=== PATIENT | male | born 1965 | race Caucasian/White ===

== ENCOUNTER 2016-09-16 07:19 | Emergency (ER) | payer SELFPAY ==
[2016-09-16] MEDS ORDERED: OXYCODONE-ACETAMINOPHEN 5-325 MG TABLET PO ONE (08:05)
--- NOTE | 2016-09-16 08:42 | RADIOLOGY REPORT (SQ) ---
EXAM DESCRIPTION: KNEE RIGHT 3 VIEWS COMPLETED DATE/TIME: 09/16/2016 8:31 am REASON FOR STUDY: swelling pain COMPARISON: None. NUMBER OF VIEWS: Three views. TECHNIQUE: AP, lateral, and sunrise patella radiographic images acquired of the right knee. LIMITATIONS: None. FINDINGS: MINERALIZATION: Normal. BONES: No acute fracture or dislocation. No worrisome bone lesions. Benign-appearing sclerotic lesi on in the femoral metaphysis consistent with healed fibrous cortical defect. Small spur off the lino lla at the insertion the quadriceps tendon. JOINT: Probable small joint effusion. SOFT TISSUES: No soft tissue swelling. No radio-opaque foreign body. OTHER: No other significant finding. IMPRESSION: 1. Probable small joint effusion. 2. Small spur off of the patella at the insertion of the quadriceps. TECHNICAL DOCUMENTATION: JOB ID: [id number] [facility]- All Rights Reserved
--- NOTE | 2016-09-16 10:43 | ER Document Report ---
ED General - General Chief Complaint: Knee Injury Stated Complaint: RIGHT LEG PAIN Time Seen by Provider: 09/16/16 07:22 TRAVEL OUTSIDE OF THE [place] IN LAST 30 DAYS: No - HPI Patient complains to provider of: Right knee pain Notes: Patient coming in for evaluation of right knee pain. Patient states a few weeks ago down had a popping feeling in his knee since that time has had intermittent pain difficulty in ambulating now has swelling from mid thigh to the ankle. Denies any recent travel denies history of blood clots. Denies any fevers chills nausea vomiting. - Related Data Allergies/Adverse Reactions: No Known Allergies Allergy (Verified 09/16/16 07:35) Past Medical History - Social History Smoking Status: Unknown if Ever Smoked Family History: Reviewed & Not Pertinent Patient has suicidal ideation: No Patient has homicidal ideation: No - Past Medical History Cardiac Medical History: Reports: Hx Hypercholesterolemia Endocrine Medical History: Reports: Hx Hypothyroidism Renal/ Medical History: Denies: Hx Peritoneal Dialysis Past Surgical History: Reports: Hx Orthopedic Surgery, Hx Thyroid Surgery - Immunizations Hx Diphtheria, Pertussis, Tetanus Vaccination: Yes Review of Systems - Review of Systems Constitutional: No symptoms reported EENT: No symptoms reported Cardiovascular: No symptoms reported Respiratory: No symptoms reported Gastrointestinal: No symptoms reported Genitourinary: No symptoms reported Male Genitourinary: No symptoms reported Musculoskeletal: Muscle pain - knee pain Skin: No symptoms reported Hematologic/Lymphatic: No symptoms reported Neurological/Psychological: No symptoms reported -: Yes All other systems reviewed and negative Physical Exam - Vital signs Vitals: Temp Pulse BP Pulse Ox 98.5 F 66 130/88 H 96 09/16/16 07:30 09/16/16 07:30 09/16/16 07:30 09/16/16 07:30 Interpretation: Normal - General General appearance: Appears well, Alert - HEENT Head: Normocephalic, Atraumatic Eyes: Normal Pupils: PERRL - Respiratory Respiratory status: No respiratory distress Chest status: Nontender Breath sounds: Normal Chest palpation: Normal - Cardiovascular Rhythm: Regular Heart sounds: Normal auscultation Murmur: No - Abdominal Inspection: Normal Distension: No distension Bowel sounds: Normal Tenderness: Nontender Organomegaly: No organomegaly - Back Back: Normal, Nontender - Extremities General upper extremity: Normal inspection, Nontender, Normal color, Normal ROM , Normal temperature General lower extremity: Normal inspection, Tender - Tenderness palpation of the right patella. Patient has no tenderness or joint laxity with valgus varus anterior posterior drawer testing. Patient does have 1+ edema from the need to the ankle., Normal color, Normal ROM, Normal temperature, Normal weight bearing. No: Yomi's sign - Neurological Neuro grossly intact: Yes Cognition: Normal Orientation: AAOx4 [place] Coma Scale Eye Opening: Spontaneous [place] Coma Scale Verbal: Oriented [place] Coma Scale Motor: Obeys Commands Dwain Coma Scale Total: 15 Speech: Normal Motor strength normal: LUE, RUE, LLE, RLE Sensory: Normal - Psychological Associated symptoms: Normal affect, Normal mood - Skin Skin Temperature: Warm Skin Moisture: Dry Skin Color: Normal Course - Re-evaluation Re-evalutation: 09/16/16 14:57 Doppler is negative for any acute disease. X-rays also negative we will place the patient in Arnaud wrap we will also give her crutches encourage patient to follow-up with PCP and orthopedics. - Vital Signs Vital signs: Temp Pulse Resp BP Pulse Ox 97.4 F 82 18 125/94 H 99 09/16/16 11:05 09/16/16 11:05 09/16/16 11:05 09/16/16 11:05 09/16/16 11:05 Discharge - Discharge Clinical Impression: Right knee pain Qualifiers: Chronicity: acute Qualified Code(s): M25.561 - Pain in right knee Condition: Good Disposition: HOME, SELF-CARE Instructions: Use of Crutches ([facility]), Ice & Elevation ([facility]), Suspected Internal Knee Injury ([facility]), Oral Narcotic Medication ([facility]) Additional Instructions: Your Doppler and knee x-ray did not show any signs of significant pathology. More likely having internal ligamentous injury causing the swelling and pain. We will place you in the Arnaud wrap for support and given crutches for ambulation. Highly recommend she follow-up with your doctor orthopedic doctor provided. Return to the ER symptoms worsen. Prescriptions: Oxycodone HCl/Acetaminophen [Percocet 5-325 mg Tablet] 1 - 2 tab PO Q4H PRN #25 tablet PRN Reason: Referrals: RAZ HERNANDEZ DO [Primary Care Provider] - Follow up in 3-5 days
--- NOTE | 2016-09-16 11:04 | XCELERA REPORT ---
[address] [address] Lower Extremity Venous Evaluation Name: JASWINDER MATHEWS Age: 50 yrs Gender: Male : 1965 Patient Status: Emergency Patient Location: ER Study Date: 09/16/2016 09:36 AM Procedure: Color flow and duplex imaging of the veins of the right lower extremity as well as the left Common Femoral vein. Reason For Study: pain right leg Ordering Physician: CHERELLE CUELLAR Performed By: Elle Stovall Right Sided Venous Evaluation Normal vessel filling wall to wall, compression and augmentation as well as Colour flow down to the infrageniculate veins. Left Sided Venous Evaluation The left common femoral vein is fully compressible. Spontaneous and phasic flow is present in the left common femoral vein. Interpretation Summary No duplex evidence of DVT or obstruction in the right lower extremity nor in the left Common Femoral vein. : CHERELLE CUELLAR > Blaine Beatty
[2016-09-16 11:06] VITALS: BP 125/94
== END 2016-09-16 11:05 | disposition home or self-care (01) ==
LOC: ER 07:19
DX: M25.561 Pain in right knee (principal); E78.00 Pure hypercholesterolemia, unspecified; E03.9 Hypothyroidism, unspecified
CPT/HCPCS: 93971; 99284

== ENCOUNTER 2017-06-12 23:16 | Emergency (ER) | payer SELFPAY ==
[2017-06-12 23:23] VITALS: BP 136/92
[2017-06-12] MEDS ORDERED: PREDNISONE 20 MG TABLET PO ONE (23:43)
[2017-06-12] MEDS ORDERED: CEPHALEXIN 500 MG CAPSULE PO ONE (23:43)
--- NOTE | 2017-06-12 23:48 | ER Document Report ---
HPI - HPI Patient complains to provider of: Skin rash Onset: Last week Onset/Duration: Worse Quality of pain: Burning Pain Level: 3 Context: Patient presents complaining of pruritic skin rash that started to develop week ago after working in the yard cleaning brush that he then realized was poison caitlin. Patient complains of redness and swelling to the left forearm. Patient denies any fever. Associated Symptoms: Other - Skin rash. denies: Fever Exacerbated by: Denies Relieved by: Denies Similar symptoms previously: No Recently seen / treated by doctor: No - ROS ROS below otherwise negative: Yes Systems Reviewed and Negative: Yes All other systems reviewed and negative - CONSTITUTIONAL Constitutional: DENIES: Fever, Chills - GASTROINTESTINAL Gastrointestinal: DENIES: Nausea - MUSCULOSKELETAL Musculoskeletal: REPORTS: Extremity pain, Swelling - DERM Skin Color: Erythema Skin Problems: Rash Past Medical History - General Information source: Patient - Social History Smoking Status: Never Smoker Frequency of alcohol use: None Drug Abuse: None Occupation: Property management Lives with: Family Family History: Reviewed & Not Pertinent - Past Medical History Cardiac Medical History: Reports: Hx Hypercholesterolemia Endocrine Medical History: Reports: Hx Hypothyroidism Renal/ Medical History: Denies: Hx Peritoneal Dialysis Past Surgical History: Reports: Hx Orthopedic Surgery, Hx Thyroid Surgery - Immunizations Hx Diphtheria, Pertussis, Tetanus Vaccination: Yes Vertical Provider Document - CONSTITUTIONAL Agree With Documented VS: Yes Exam Limitations: No Limitations General Appearance: WD/WN, No Apparent Distress - INFECTION CONTROL TRAVEL OUTSIDE OF THE [place] IN LAST 30 DAYS: No - HEENT HEENT: Atraumatic, Normocephalic - NECK Neck: Normal Inspection - RESPIRATORY Respiratory: Breath Sounds Normal, No Respiratory Distress - CARDIOVASCULAR Cardiovascular: Regular Rate, Regular Rhythm - BACK Back: Normal Inspection - MUSCULOSKELETAL/EXTREMETIES Musculoskeletal/Extremeties: MAEW, Edema - left forearm - NEURO Level of Consciousness: Awake, Alert, Appropriate Motor/Sensory: No Motor Deficit - DERM Integumentary: Warm, Dry, Rash - Patient with rash to bilateral upper and lower extremities with vesicular lesions, some areas of rash in linear distribution consistent with contact dermatitis. Patient with left forearm erythema and swelling. Course - Re-evaluation Re-evalutation: 06/12/17 23:44 Patient with symptoms consistent with contact dermatitis especially given history of recent exposure to poison caitlin. Patient with left forearm redness, swelling and warmth concerning for developing cellulitis. Discussed worsening symptoms that patient should return immediately for. Patient verbalized understanding agrees with plan of care. - Vital Signs Vital signs: Temp Pulse Resp BP Pulse Ox 97.9 F 93 18 136/92 H 99 06/12/17 23:21 06/12/17 23:21 06/12/17 23:21 06/12/17 23:21 06/12/17 23:21 Discharge - Discharge Clinical Impression: Contact dermatitis Qualifiers: Contact dermatitis type: unspecified Contact dermatitis trigger: non-food plants Qualified Code(s): L25.5 - Unspecified contact dermatitis due to plants, except food Cellulitis Qualifiers: Site of cellulitis: extremity Site of cellulitis of extremity: upper extremity Laterality: left Qualified Code(s): L03.114 - Cellulitis of left upper limb Condition: Stable Disposition: HOME, SELF-CARE Instructions: Cellulitis ([facility]), Cephalexin ([facility]), Poison Caitlin ([facility]), Steroid Medication Additional Instructions: Return immediately for any new or worsening symptoms Followup with your primary care provider, call tomorrow to make a followup appointment You may use [id number] skin cleanser such as technu or zanfel over the counter as directed Prescriptions: Cephalexin Monohydrate [Keflex 500 mg Capsule] 500 mg PO Q6H 5 Days capsule Hydroxyzine HCl [Atarax 25 mg Tablet] 1 - 2 tab PO QID #25 tablet Prednisone [Deltasone 5 mg Tablet] 5 mg PO ASDIR PRN #100 tablet PRN Reason: Referrals: RAZ HERNANDEZ DO [Primary Care Provider] - Follow up as needed
== END 2017-06-13 00:01 | disposition home or self-care (01) ==
LOC: ER 23:16
DX: L25.5 Unspecified contact dermatitis due to plants, except food (principal)
CPT/HCPCS: 99282; J7512

== ENCOUNTER 2019-10-11 02:55 | Emergency (ER) | payer SELFPAY ==
[2019-10-11] MEDS ORDERED: NITROGLYCERIN 0.4 MG/TAB 25 TAB/BOTTLE SL ONE (03:29)
[2019-10-11] MEDS ORDERED: ASPIRIN 81 MG TABLET, CHEWABLE PO ONE (03:29)
[2019-10-11] MEDS ORDERED: NITROGLYCERIN/D5W 50 MG/250 ML RTUINJ IV PRN (03:29)
[2019-10-11 03:33] LABS: ABSOLUTE BASOPHILS # (AUTO) 0.1 10^3/uL (0.0-0.2); ABSOLUTE EOSINOPHILS # (AUTO) 0.3 10^3/uL (0.0-0.6); BASOPHILS % (AUTO) 1.2 % (0-2); RED CELL DISTRIBUTION WIDTH 12.8 % (11.5-14.0); TOTAL CELLS COUNTED % (AUTO) 100 %
[2019-10-11 03:38] LABS: ABSOLUTE LYMPHOCYTES (AUTO) 2.2 10^3/uL (0.5-4.7); ABSOLUTE MONOCYTES (AUTO) 0.7 10^3/uL (0.1-1.4); ABSOLUTE NEUT (AUTO) 3.6 10^3/uL (1.7-8.2); EOSINOPHILS % (AUTO) 4.5 % (0-6); HEMATOCRIT 42.2 % (37.9-51.0); HEMOGLOBIN 14.9 g/dL (13.5-17.0); LYMPHOCYTES % (AUTO) 31.7 % (13-45); MEAN CORPUSCULAR HEMOGLOBIN 32.4 pg (27.0-33.4); MEAN CORPUSCULAR HGB CONC 35.4 g/dL (32.0-36.0); MEAN CORPUSCULAR VOLUME 92 fl (80-97); PLATELET COUNT 212 10^3/uL (150-450); RED BLOOD COUNT 4.61 10^6/uL (4.35-5.55); SEGMENTED NEUTROPHILS % (AUTO) 52.6 % (42-78); WHITE BLOOD COUNT 6.9 10^3/uL (4.0-10.5)
--- NOTE | 2019-10-11 03:39 | ER Document Report ---
ED General - General Chief Complaint: Chest Pain Stated Complaint: CHEST PAIN DOWN ARMS Time Seen by Provider: 10/11/19 03:29 Primary Care Provider: RAZ HERNANDEZ DO [Primary Care Provider] - Follow up as needed TRAVEL OUTSIDE OF THE [place] IN LAST 30 DAYS: No - HPI Notes: Patient is a 53-year-old gentleman who presents to the emergency department for evaluation. He complains of chest tightness, onset after dinner. He states is progressively gotten worse. It radiates to bilateral shoulders, down to bilateral elbows. He has had some very mild shortness of breath and nausea with it. He states he thought it was indigestion. He has tried Pepsi, Pepto-Bismol, without any relief. He states he has never had pain similar to this in the past. He does see a primary care provider regularly. He states he gets his blood work checked, blood pressure checked, and no significant abnormalities have been identified. - Related Data Allergies/Adverse Reactions: No Known Allergies Allergy (Verified 09/16/16 07:35) Home Medications: Synthroid Past Medical History - General Information source: Patient - Social History Smoking Status: Current Some Day Smoker Frequency of alcohol use: Occasional Drug Abuse: None Family History: Reviewed & Not Pertinent, COPD - Past Medical History Cardiac Medical History: Reports: Hx Hypertension Endocrine Medical History: Reports: Hx Hypothyroidism Renal/ Medical History: Denies: Hx Peritoneal Dialysis Past Surgical History: Reports: Hx Orthopedic Surgery, Hx Thyroid Surgery - Immunizations Hx Diphtheria, Pertussis, Tetanus Vaccination: Yes Review of Systems - Review of Systems Constitutional: No symptoms reported EENT: No symptoms reported Cardiovascular: See HPI Respiratory: See HPI Gastrointestinal: See HPI Genitourinary: No symptoms reported Musculoskeletal: No symptoms reported Skin: No symptoms reported Neurological/Psychological: No symptoms reported Physical Exam - Vital signs Vitals: Resp BP Pulse Ox 16 154/109 H 99 10/11/19 03:13 10/11/19 03:13 10/11/19 03:13 - Notes Notes: This is a 53-year-old anxious appearing man, who appears her stated age, no acute distress. Vital signs reviewed, please refer to chart. Head is normocephalic, atraumatic. Pupils equal round, reactive to light. Neck is supple without meningismus. Heart is regular rate and rhythm. Lungs are clear to auscultation bilaterally. Abdomen is soft, nontender, normoactive bowel sounds throughout. Extremities without cyanosis, clubbing. Posterior calves are nontender. Peripheral pulses are equal. Skin is warm and dry. Patient is awake, alert, neurological exam is nonfocal. Course - Re-evaluation Re-evalutation: 10/11/19 03:38 Patient presents to the emergency department for evaluation. He had an EKG in triage, and it was concerning for possible posterior inferior infarction. The patient was brought straight back to the room. Is placed on a gas welder apprentice. He is given aspirin, nitroglycerin. We will start him on a nitroglycerin drip. Will involve cardiology. Patient is currently stable, we will continue to monitor. 10/11/19 04:09 [facility], I spoke with Dr. Leija. We talked at length about the patient and his presentation. The patient's EKG was reviewed by the vascular nurse. He was concerned about the possibility of an inferior wall NH. He advised the administration of lytics as well as transfer to [facility] for possible intervention. I spoke to the patient about this. We talked at length, he has no contraindications to the administration of thrombolytic therapy, was agreeable to this. Patient was having improvement in his pain with nitroglycerin at 5 mcg. It was increased to 10. He is administered 50 mg of tenecteplase, IV Lovenox, p.o. Plavix. I spoke with Dr. Eden, ED physician at [facility]. He accepted the patient to the ED for evaluation by cardiology. Patient's pain has significantly improved, but he states it is still present. We will give him some morphine, and increase the nitroglycerin drip. - Vital Signs Vital signs: Temp Pulse Resp BP Pulse Ox 98.3 F 78 17 134/88 H 97 10/11/19 03:16 10/11/19 03:16 10/11/19 04:16 10/11/19 04:16 10/11/19 04:16 - Laboratory Result Diagrams: 10/11/19 03:15 10/11/19 03:15 Laboratory results interpreted by me: 10/11/19 03:15 BUN 21 H - EKG Interpretation by Me Additional EKG results interpreted by me: 10/11/19 03:39 Sinus mechanism with rate of 73 bpm. Normal axis and intervals. ST depression anteriorly, ST elevation changes inferiorly. These are all concerning for acute ischemia/infarction. No old studies available for comparison. Critical Care Note - Critical Care Note Total time excluding time spent on procedures (mins): 40 Discharge - Discharge Clinical Impression: ST elevation (STEMI) myocardial infarction Condition: Stable Disposition: [facility] Admitting Provider: Meek Referrals: RAZ HERNANDEZ DO [Primary Care Provider] - Follow up as needed
[2019-10-11 03:44] LABS: ALBUMIN 4.3 g/dL (3.5-5.0); ALKALINE PHOSPHATASE 50 U/L (38-126); ANION GAP 8 (5-19); ASPARTATE AMINO TRANSFERASE 26 U/L (17-59); BILIRUBIN,DIRECT 0.2 mg/dL (0.0-0.4); BILIRUBIN,TOTAL 0.6 mg/dL (0.2-1.3); BLOOD UREA NITROGEN 21 mg/dL (7-20); CALCIUM 9.2 mg/dL (8.4-10.2); CARBON DIOXIDE 29 mmol/L (22-30); CHLORIDE 105 mmol/L (98-107); CREATINE KINASE 135 U/L (55-170); GLUCOSE 109 mg/dL (75-110)
[2019-10-11 03:56] LABS: CREATINE KINASE MB 1.3 ng/mL (<4.55)
[2019-10-11 03:58] LABS: TROPONIN I 0.074 ng/mL
[2019-10-11] MEDS ORDERED: TENECTEPLASE INJ 50 MG KIT IV ONE ×3 (03:58→08:54)
[2019-10-11] MEDS ORDERED: CLOPIDOGREL BISULFATE 300 MG TABLET PO ONE (04:15)
[2019-10-11] MEDS ORDERED: MORPHINE SULFATE 10 MG/ML INJ IV ONE (04:15)
[2019-10-11] MEDS ORDERED: ENOXAPARIN SODIUM INJ 30 MG/0.3 ML DISP.SYRIN IV ONE (04:15)
[2019-10-11] MEDS ORDERED: ENOXAPARIN SODIUM INJ 30 MG/0.3 ML DISP.SYRIN SUBCUT ONE (04:15)
[2019-10-11] MEDS ORDERED: ONDANSETRON HCL INJ/PF 4 MG/2 ML SDV IV ONE (04:16)
[2019-10-11] MEDS ORDERED: ENOXAPARIN SODIUM INJ 100 MG/1 ML DISP.SYRIN SUBCUT ONE (04:30)
--- NOTE | 2019-10-11 04:45 | RADIOLOGY REPORT (SQ) ---
EXAM DESCRIPTION: XR CHEST 1 VIEW COMPLETED DATE/TME: 10/11/2019 03:23 CLINICAL HISTORY: 53 years, Male, chest pain COMPARISON: None. NUMBER OF VIEWS: 1 TECHNIQUE: Portable chest LIMITATIONS: None. FINDINGS: Heart size is normal. Lungs are clear. No pneumothorax IMPRESSION: Negative chest copyright 2011 [employer]- All Rights Reserved
[2019-10-11 04:57] VITALS: BP 133/86
--- NOTE | 2019-10-11 06:39 | EKG REPORT ---
SEVERITY:- ABNORMAL ECG - SINUS RHYTHM PROBABLE POSTERIOR INFARCT ST ELEVATION, CONSIDER INFERIOR INJURY, CLINICAL CORRELATION NEEDED : Confirmed by: Chetan Bermudez MD 11-Oct-2019 06:38:32
--- NOTE | 2019-10-11 06:39 | EKG REPORT ---
SEVERITY:- ABNORMAL ECG - SINUS RHYTHM PROBABLE POSTERIOR INFARCT ST ELEVATION, CONSIDER INFERIOR INJURY : Confirmed by: Chetan Bermudez MD 11-Oct-2019 06:38:56
[2019-10-11] MEDS ORDERED: ENOXAPARIN SODIUM INJ 30 MG/0.3 ML DISP.SYRIN ONE (08:54)
[2019-10-11] MEDS ORDERED: CLOPIDOGREL BISULFATE 300 MG TABLET ONE (08:54)
== END 2019-10-11 04:50 | disposition short-term general hospital (02) ==
LOC: ER 02:55
DX: I21.3 ST elevation (STEMI) myocardial infarction of unspecified site (principal); R07.9 Chest pain, unspecified; R06.02 Shortness of breath; F17.200 Nicotine dependence, unspecified, uncomplicated; I10 Essential (primary) hypertension
CPT/HCPCS: 93005; 99291; 96372; 96375; 96365; 36415; 82553; 82550; 85025; 80053; 84484; 71045; 93010; J3101; J3490 ×2; J2270; J2405; J1650 ×2